=== PATIENT | male | born 1990 | race Caucasian/White ===

== ENCOUNTER 2021-11-28 11:31 | Emergency (ER) | payer OTHER ==
[2021-11-28 11:38] VITALS: BP 128/84; PULSE 109; TEMP 98.3; BMI 24.3
[2021-11-28] MEDS ORDERED: KETOROLAC TROMETHAMINE 30 MG/1 ML VIAL IM ONE (12:25)
[2021-11-28] MEDS ORDERED: KETOROLAC TROMETHAMINE 30 MG/1 ML VIAL ONE (12:28)
== END 2021-11-28 13:04 | disposition home or self-care (01) ==
LOC: JERFT 11:31
PROC: 3E023GC Introduction of Other Therapeutic Substance into Muscle, Percutaneous Approach (ICD-10-PCS; principal; 2021-11-28)
DX: K11.20 Sialoadenitis, unspecified (principal)
CPT/HCPCS: 99284-25